=== PATIENT | male | born 1995 | race Caucasian/White ===

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

== ENCOUNTER 2023-01-30 11:05 | Emergency (ER) | payer MEDICAID ==
[~2023-01-30] VITALS: Ht 182.9 cm; Wt 88.5 kg
[2023-01-30 12:20] VITALS: BP 132/70; TEMP 98.2; O2SAT 100
== END 2023-01-30 11:55 | disposition home or self-care (01) ==
LOC: ER 11:05
DX: S82.51XA Displaced fracture of medial malleolus of right tibia, initial encounter for closed fracture (principal); X58.XXXA Exposure to other specified factors, initial encounter; Y93.66 Activity, soccer; Y92.89 Other specified places as the place of occurrence of the external cause; Y99.8 Other external cause status
CPT/HCPCS: 73610; A4663